=== PATIENT | female | born 1970 | race Caucasian/White ===

== ENCOUNTER 2018-09-09 15:51 | Inpatient (IN) ==
[2018-09-09] MEDS ORDERED: ZOFRAN IV ONE (16:32)
[2018-09-09] MEDS ORDERED: MORPHINE IV ONE ×3 (16:32→20:10)
[2018-09-09 17:11] LABS: URINE SOURCE CLEAN CATCH
[2018-09-09 17:16] LABS: BASO# 0.07 X1000 (0.0-0.2); BASO% 0.7 % (0.0-0.8); EOS# 1.89 X1000 (0.0-0.7); EOS% 19.5 % (0.0-10.0); HEMATOCRIT 39.6 % (37.0-47.0); HEMOGLOBIN 12.5 g/dL (12.0-16.0); IMM GRAN# 0.03 X1000 (0.0-0.04); IMM GRAN% 0.3 % (0.0-0.5); LYMPH# 2.09 X1000 (1.2-3.4); LYMPH% 21.6 % (20.5-51.1); MCH 28.1 PG (27-31); MCHC 31.6 g/dL (33-37); MONO# 0.91 X1000 (0.11-0.59); MONO% 9.4 % (1.7-9.3); MPV 10.2 FL (7.4-10.4); NEUT# 4.69 X1000 (1.4-6.5); NEUT% 48.5 % (42.2-75.2); PLT 294 X1000 (130-400); RBC 4.45 XMIL (4.2-5.4); RDW 14.1 % (11.5-14.5); WBC 9.68 X1000 (4.8-10.8)
[2018-09-09 17:18] LABS: BILIRUBIN URINE NEGATIVE (NEGATIVE); BLOOD URINE SMALL (NEGATIVE); COLOR STRAW; GLUCOSE URINE NEGATIVE (NEGATIVE); KETONE URINE NEGATIVE (NEGATIVE); LEUKOCYTES URINE MODERATE (NEGATIVE); NITRITE URINE NEGATIVE (NEGATIVE); PROTEIN URINE NEGATIVE (NEGATIVE); SP GRAVITY URINE 1.003; TURBIDITY URINE CLEAR (CLEAR); UR EPITHELIAL CELLS <10 /HPF (<10); URINE BACTERIA NEGATIVE /HPF; URINE RBC 20-40 /HPF (<10); URINE WBC <10 /HPF (<10); UROBILINOGEN URINE NORMAL (NORMAL)
[2018-09-09 17:23] LABS: INR 2.47; PROTIME 28.6 Seconds (11.0-16.0)
[2018-09-09 17:24] LABS: PTT 39.6 Seconds (22.3-41.8)
[2018-09-09 17:30] LABS: ALBUMIN 3.7 g/dL (3.5-5.0); CALCIUM 9.2 mg/dL (8.8-10.2); CREATININE 1.3 mg/dL (0.5-0.9); POTASSIUM 4.7 mmol/L (3.5-5.1); TOTAL BILIRUBIN 0.24 mg/dL (0.20-1.00); TOTAL PROTEIN 7.3 g/dL (6.3-8.3)
[2018-09-09] MEDS ORDERED: NS 1,000 ML IV ONE (17:46)
[2018-09-09] MEDS ORDERED: MACROBID PO ONE (18:46)
--- NOTE | 2018-09-09 20:03 | Diag Imaging Result Doc PS360 ---
EXAM: CT ABD/PELVIS W/IV CONT ONLY HISTORY: abdominal pain TECHNIQUE: CT abdomen and pelvis with intravenous contrast COMPARISON: None. FINDINGS: The gallbladder is contracted. There is a 6 mm stone within it. No adjacent inflammation. There is fatty infiltration of the liver and there are multiple scattered hepatic cysts. The largest measures 2.0 cm. Normal spleen, pancreas, and adrenal glands. There are many bilateral renal stones and there is a left ureteral stent. No hydronephrosis. There are small scattered renal cysts. Normal aorta. There are fluid distended loops of bowel in the left abdomen. There is an umbilical hernia with a small bowel loop within it. Along the right side of the loop is dilated, but coming out the left the bowel loop is no longer dilated. There is stool throughout the colon. No inflammation about the cecum. No abscess. Urinary bladder is moderately distended and is normal. Normal uterus. Complex right ovarian cyst measuring just under 4 cm. IMPRESSION: 1.Incarcerated umbilical hernia 2.Cholelithiasis 3.Nephrolithiasis with a left ureteral stent 4.Fatty liver 5.Right ovarian cyst This report was discussed with Dr. Hyde in the emergency room on 09/09/2018 at 8:00 PM and was readback. This exam was performed using automated exposure control, adjustment of mA or kV according to patient size, and/or use of iterative reconstruction technique. Electronically signed by Henry Cohen 09/09/2018 8:01 PM
[2018-09-09] MEDS ORDERED: DILAUDID IV ONE ×2 (20:12→20:58)
--- NOTE | 2018-09-09 22:18 | HISTORY AND PHYSICAL ---
PRIMARY CARE PHYSICIAN: Dr. Denis Handy. CHIEF COMPLAINT: Abdominal pain. HISTORY OF PRESENTING ILLNESS: A 47-year-old female with a history of subarachnoid hemorrhage, seizure disorder and kidney stones who had presented to emergency department 1- day history of having sharp abdominal pain mostly in her umbilical region. She states that she was nauseated. She had presented to the emergency department. She had imaging done which did show incarcerated umbilical hernia. Her case was discussed with general surgery who recommended patient be admitted for further evaluation, management. At the time of my examination patient denied any fever, chills, chest pain, shortness of breath, hemoptysis but complained of abdominal pain. PAST MEDICAL HISTORY: Includes subarachnoid hemorrhage recently, CVA, seizures, kidney stones. PAST SURGICAL HISTORY: Left ureteral stents. ALLERGIES: Demerol and Cipro. CURRENT MEDICATIONS: Include gabapentin 300 mg p.o. t.i.d., Mitchell 10/325 1 p.o. q.i.d., Keppra 500 mg p.o. b.i.d., propranolol 40 mg p.o. b.i.d., warfarin 5 mg 1 p.o. daily. SOCIAL HISTORY: She denies any history of smoking, alcohol or illicit drug use. FAMILY HISTORY: No history of coronary disease. REVIEW OF SYSTEMS: Fourteen point review of systems is as in HPI other systems negative. PHYSICAL EXAMINATION: GENERAL: Cooperative, friendly female. She is resting more comfortably now. VITAL SIGNS: Temperature 98 degrees, pulse 72, respirations 16, blood pressure 124/73. HEENT: Atraumatic, normocephalic. Extraocular movements intact. PERRLA. NECK: No masses. CHEST: Clear to auscultation. CARDIOVASCULAR: Regular rate and rhythm. ABDOMEN: Soft and tenderness noted in umbilical region. : No bladder distention. SKIN: Warm. LABORATORIES AND STUDIES: WBC 9.68, hemoglobin 12.5, hematocrit 39.6, platelets 294,000. Sodium 139, potassium 4.7, chloride 105, CO2 25, BUN is 16, creatinine is 1.3, glucose is 98. UA shows moderate leukocytes and urine bacteria was negative. ASSESSMENT: This is a 47-year-old female with a recent subarachnoid hemorrhage, seizure disorder, kidney stones who had presented to emergency department with 1-day history of having abdominal pain. She was evaluated in the emergency department. She had imaging done which did show incarcerated umbilical hernia. Her case was discussed with general surgery who recommended patient be admitted for further evaluation, management. 1. Incarcerated umbilical hernia, was difficult to reduce. 2. Status post recent subarachnoid hemorrhage. 3. Seizure disorder. 4. History of kidney stone status post lithotripsy and left ureteral stents. PLAN: 1. We will admit patient to surgical floor. 2. Continue with supportive treatment with pain control, antiemetics. 3. General surgery was consulted. 4. Will continue to place patient on seizure precautions. 5. We will restart home medications once cleared by surgery 6. The patient is already on anticoagulation with Coumadin and that will suffice for her DVT prophylaxis for now. 7. We will continue to follow and reassess. Make further recommendation based on patient's clinical course. cc: Eliu Zaidi MD MTDD
--- NOTE | 2018-09-10 00:19 | GENERAL SURGERY CONSULTATION ---
DATE: 09/09/2018 REASON FOR CONSULTATION: Umbilical hernia and small-bowel obstruction. HISTORY OF PRESENT ILLNESS: This is a 47-year-old female who presented to the emergency room today with acute onset of severe periumbilical pain and nausea at around 3:30 this afternoon. She has never had any prior episodes, and she has noted a bulge in her umbilicus today. Her last bowel movement was 2 days ago. She has passed gas since then. Pain is worsened to direct pressure. There have been no relieving factors. PAST MEDICAL HISTORY: Subarachnoid hemorrhage, some type of intracerebral thrombotic event for which she is on Coumadin now, seizures, and kidney stones. PAST SURGICAL HISTORY: Left ureteral stents. ALLERGIES: Demerol and Cipro. HOME MEDICATIONS: Gabapentin, [place], Keppra, propranolol, and warfarin. SOCIAL HISTORY: Negative for tobacco, alcohol, or illicit drug use. FAMILY HISTORY: Reviewed and noncontributory. REVIEW OF SYSTEMS: Ten systems reviewed and negative except as noted above. PHYSICAL EXAMINATION: Vital Signs: Temperature 98 degrees, pulse 73, respirations 14, blood pressure 118/66, O2 saturation 97%. General: Well-developed, well-nourished female in no distress, who looks her stated age. HEENT: Normocephalic, atraumatic. Extraocular muscles intact. Pupils equal, round, reactive to light. Sclerae anicteric. Moist mucous membranes. Hearing grossly normal. No oral lesions. Neck: Supple. No thyromegaly. Cardiovascular: Regular rate and rhythm. Respiratory: Bilaterally equal breath sounds. No work of breathing. Gastrointestinal: Soft, somewhat obese. No organomegaly or mass. No rebound or guarding. She does have a small umbilical hernia. I was able to reduce it with gentle, steady pressure. She was tender in the umbilicus but, again, without rebound or guarding. Extremities: No clubbing, cyanosis, or edema. Skin: Warm and dry. No rash. Musculoskeletal: Moves all extremities equally and well. LABORATORY: CBC reviewed and unremarkable. Complete metabolic profile reviewed and notable for a creatinine of 1.3. Serum lactate 1.1. INR 2.47. Urinalysis positive for leukocytes and blood. IMAGING: Abdominal and pelvis CT scan shows an incarcerated umbilical hernia with dilated proximal bowel and decompressed distal bowel at the umbilicus. There are gallstones, nephrolithiasis with a left ureteral stent, a fatty liver, and a right ovarian cyst. ASSESSMENT AND PLAN: A 47-year-old female with umbilical hernia and small-bowel obstruction. It was incarcerated but now is reducible. She is on Coumadin for some type of cerebral thrombosis. This is in spite of her having a recent subarachnoid hemorrhage. Since this is reducible, my plan is to slowly reverse the Coumadin and plan a semi-elective repair in the near future. Therefore, I am going to hold her Coumadin, and we will monitor her INR over the next couple of days and get her ready for surgery in the near future. cc: Zion Bailey MD
[2018-09-10] MEDS: DILAUDID IV PRN ×5 (02:28→21:30)
[2018-09-10 06:36] LABS: BASO# 0.03 X1000 (0.0-0.2); BASO% 0.4 % (0.0-0.8); EOS# 1.04 X1000 (0.0-0.7); EOS% 15.5 % (0.0-10.0); HEMATOCRIT 38.8 % (37.0-47.0); HEMOGLOBIN 12.2 g/dL (12.0-16.0); IMM GRAN# 0.02 X1000 (0.0-0.04); IMM GRAN% 0.3 % (0.0-0.5); LYMPH# 1.71 X1000 (1.2-3.4); LYMPH% 25.6 % (20.5-51.1); MCH 28.4 PG (27-31); MCHC 31.4 g/dL (33-37); MCV 90.2 FL (81-99); MONO# 0.86 X1000 (0.11-0.59); MONO% 12.9 % (1.7-9.3); NEUT# 3.03 X1000 (1.4-6.5); NEUT% 45.3 % (42.2-75.2); PLT 274 X1000 (130-400); RDW 14.3 % (11.5-14.5); WBC 6.69 X1000 (4.8-10.8)
[2018-09-10 06:47] LABS: INR 2.51; PROTIME 28.9 Seconds (11.0-16.0)
[2018-09-10 06:56] LABS: CALCIUM 8.6 mg/dL (8.8-10.2); CREATININE 1.1 mg/dL (0.5-0.9); POTASSIUM 4.4 mmol/L (3.5-5.1)
[2018-09-10] MEDS ORDERED: KEPPRA PO SCH (09:00)
[2018-09-10] MEDS ORDERED: NEURONTIN PO SCH (09:00)
[2018-09-10] MEDS ORDERED: INDERAL PO SCH (09:00)
[2018-09-10] MEDS ORDERED: VITAMIN K SUBQ ONE (11:17)
--- NOTE | 2018-09-10 11:24 | PROGRESS NOTE ---
DATE: 09/10/2018 SUBJECTIVE: This morning Ms. Farnsworth refers to be feeling a whole lot better. Still has some abdominal discomfort. Has already been evaluated by Dr. Bailey earlier yesterday. OBJECTIVE: Vital signs: Blood pressure is 116/53, pulse is 81, respiration is 16, and temperature is 97.7 degrees. General: Ms. Farnsworth is a 47-year-old female. She is in bed. She is not in any cardiopulmonary distress. HEENT: Mucosa is pink and moist. Anicteric. Acyanotic. Neck: Supple. Chest: Good air entry bilaterally. No crepitations. No rhonchi. Cardiovascular: Regular rate and rhythm. No murmurs, no rubs, no gallops. GI: Abdomen is soft, distended, minimally tender in the supraumbilical area. I was not able to palpate any defect, but she did refer a lot of pain. Bowel sounds were present. No hepatosplenomegaly. Extremities: No pedal edema. Distal pulses present. APPEALS MANAGER: Patient is awake, alert, oriented. There is no focal neurological deficit. LABORATORY DATA: CBC is completely normal. Chemistry shows creatinine is 1.1, which is coming down. CURRENT MEDICATIONS: Have all been reviewed. X-RAY DATA: A CT scan of the abdomen and pelvis did show incarcerated umbilical hernia. There is also cholelithiasis, fatty liver disease. ASSESSMENT: 1. Abdominal pain secondary to incarcerated umbilical hernia. The patient has been evaluated by Surgery. There is a plan for hernia repair some time Wednesday. 2. Cholelithiasis, currently asymptomatic. 3. History of nephrolithiasis with left ureteral stent. 4. Mild intravascular depletion. We will continue patient with intravenous fluids. Creatinine is down to 1.1. 5. History of cerebral venous thrombosis. The patient is on Coumadin. INR is currently 2.51, which is therapeutic. However, we want it to be below 1.5 before surgery is done. 6. History of supraventricular tachycardia. Patient is on chronic propranolol. PLAN: So, today we are going to keep the patient n.p.o., convert her antiseizure medications to IV, and also metoprolol IV instead of the p.o. propranolol. We will start her on a D 5 with half- normal saline and potassium for baseline hydration. Control the pain and await further recommendations from Surgery. cc: Marcus Zuñiga MD
[2018-09-10] MEDS: KEPPRA 500 MG in NS 100 ML IV SCH (11:42)
[2018-09-10] MEDS: D5 1/2 NS + KCL 20 MEQ 1,000 ML IV SCH (11:42)
[2018-09-10] MEDS: ZOFRAN IV PRN ×3 (11:54→21:34)
--- NOTE | 2018-09-10 13:37 | GENERAL SURGERY PROGRESS NOTE ---
DATE: 09/10/2018 SUBJECTIVE: The patient continues to have some abdominal pain around the umbilicus. It is helped with her Dilaudid. It is worsened with direct pressure or straining and movement. No nausea or vomiting. She did pass a little gas today. OBJECTIVE: She is afebrile. Vital signs are stable.General: She is awake and alert and oriented x4. No acute distress. Cardiovascular: Regular rate and rhythm. Respiratory: Bilateral breath sounds. No work of breathing. Gastrointestinal: Soft, nondistended. She is tender around the umbilicus. She does continue to have a reducible small umbilical hernia. LABORATORY: CBC and basic metabolic profile reviewed and unremarkable. INR 2.5. ASSESSMENT AND PLAN: A 47-year-old female with recent incarcerated, now reducible umbilical hernia and associated partial small-bowel obstruction. She seems to be improved, but is at risk for re-incarceration. I am tentatively planning umbilical hernia repair on Wednesday. We need to reverse her INR. I want to review her records from [facility] to decide appropriate anticoagulation in this setting. cc: Zion Bailey MD
[2018-09-10] MEDS ORDERED: NORCO-7.5 PO PRN (18:19)
[2018-09-10] MEDS: LOPRESSOR IV SCH ×2 (18:20→22:30)
[2018-09-11] MEDS: KEPPRA 500 MG in NS 100 ML IV SCH ×3 (00:15→22:28)
[2018-09-11] MEDS: ZOFRAN IV PRN ×4 (03:15→18:16)
[2018-09-11] MEDS: D5 1/2 NS + KCL 20 MEQ 1,000 ML IV SCH ×2 (05:51→12:43)
[2018-09-11 06:34] LABS: BASO# 0.02 X1000 (0.0-0.2); BASO% 0.4 % (0.0-0.8); EOS# 0.56 X1000 (0.0-0.7); EOS% 10.5 % (0.0-10.0); HEMATOCRIT 39.7 % (37.0-47.0); HEMOGLOBIN 12.6 g/dL (12.0-16.0); LYMPH# 1.46 X1000 (1.2-3.4); LYMPH% 27.3 % (20.5-51.1); MCH 28.5 PG (27-31); MCHC 31.7 g/dL (33-37); MCV 89.8 FL (81-99); MONO# 0.58 X1000 (0.11-0.59); MONO% 10.9 % (1.7-9.3); NEUT# 2.72 X1000 (1.4-6.5); NEUT% 50.9 % (42.2-75.2); PLT 273 X1000 (130-400); RBC 4.42 XMIL (4.2-5.4); RDW 14.1 % (11.5-14.5); WBC 5.34 X1000 (4.8-10.8)
[2018-09-11 06:39] LABS: INR 2.07; PROTIME 24.9 Seconds (11.0-16.0)
[2018-09-11] MEDS: DILAUDID IV PRN ×4 (06:48→18:57)
[2018-09-11 07:00] LABS: ALBUMIN 3.6 g/dL (3.5-5.0); CALCIUM 8.9 mg/dL (8.8-10.2); CREATININE 1.1 mg/dL (0.5-0.9); POTASSIUM 4.1 mmol/L (3.5-5.1); TOTAL BILIRUBIN 0.45 mg/dL (0.20-1.00); TOTAL PROTEIN 7.1 g/dL (6.3-8.3)
[2018-09-11] MEDS ORDERED: KEFZOL 1 GM/D5W 1 GM/50 ML IVPB IV ONE (07:40)
--- NOTE | 2018-09-11 10:24 | PROGRESS NOTE ---
DATE: 08/12/2018 SUBJECTIVE: This morning Ms. Farnsworth refers to be fairly okay. Complains of some nauseation every now and then even before her next dose of Zofran. OBJECTIVE: Vital signs: Blood pressure is 148/69, pulse is 80, respiration 16, temperature 97.9 degrees. General: Ms. Farnsworth is a 47-year-old female. She is in bed, no distress. HEENT: Mucosa is pink and moist. Anicteric. Acyanotic. Neck: Supple. Chest: Good air entry bilateral. There was no crepitations, no rhonchi. Cardiovascular: Regular rate and rhythm. No murmurs, no rubs, no gallops. GI: Abdomen is soft. There is just some mild tenderness around the periumbilical area. Bowel sounds are present. There is no hepatosplenomegaly. Extremities: No pedal edema. Distal pulses present. HIDE PASTER: Patient is awake, alert, and oriented. There is no focal neurological deficit. LABORATORY DATA: WBC is 5.34, hemoglobin is 12.6, platelet count of 233,000. Chemistry is also reviewed which is completely normal. Creatinine is 1.1 which is the same as yesterday. INR this morning is 2.07. The patient has been evaluated today by surgery. ASSESSMENT: 1. Periumbilical abdominal pain secondary to incarcerated umbilical hernia. The patient has been evaluated by surgery. There is a plan for hernia repair tomorrow. 2. Cholelithiasis without acute cholecystitis. 3. History of nephrolithiasis with left ureteral stent placement. 4. Mild intra volume depletion improved. 5. History of cerebral venous thrombosis as a result of control pills. The patient is on Coumadin. INR this morning is 2.07. She got a dose of vitamin K yesterday but because surgery is for tomorrow I agree that she gets FFP to reverse this before surgery. Target INR should be below 1.4 -1.5. 6. History of supra ventricular tachycardia. Heart rate is controlled. Currently on IV metoprolol. 7. Hx Cerebral bleed on seizure precautions. Patient is on levetiracetam and this has been also converted to IV. PLAN: So in general Ms. Ms Farnsworth is clinically stable. She is pending a paraumbilical hernia repair tomorrow. Ms Farnsworth was on Coumadin because of cerebral venous thrombosis that she developed about 2 months ago from chronic oral combined contraceptive pills. Her INR has been pretty much therapeutic for the past 2 months. She is obviously going for a moderate to high bleeding procedure, especially if this is not laparoscopically done. She was given an FFP to try and reverse the INR. She is getting FFP today, Our targeted INR should be about 1.4. We will continue to follow up with further recommendations from surgery. cc: Marcus Zuñiga MD MTDD
[2018-09-11] MEDS: LOVENOX SUBQ SCH ×2 (12:42→22:28)
[2018-09-11] MEDS: LOPRESSOR IV SCH ×2 (12:43→22:27)
[2018-09-11] MEDS ORDERED: NS 500 ML ONE (13:27)
--- NOTE | 2018-09-11 13:56 | GENERAL SURGERY PROGRESS NOTE ---
DATE: 09/11/2018 SUBJECTIVE: The patient complains of some nausea but no vomiting. She has been able to get down a small amount of liquids. She has passed a little gas. She has abdominal pain but it is fairly well controlled now. No increasing abdominal distention. OBJECTIVE: She is afebrile. Vital signs are stable. General: She is awake, alert, oriented x4. No acute distress. GI soft nondistended mildly tender around the umbilicus. Her umbilical hernia is still reducible, but continues to bulge out most of the time. LABORATORY: CBC and complete metabolic profile reviewed and unremarkable. INR 2.0. ASSESSMENT AND PLAN: A 47-year-old female with incarcerated umbilical hernia on admission, now it is reducible. She had a small bowel obstruction on admission. This appears to be resolving. She had recent subarachnoid hemorrhage and cerebral venous sinus thrombosis treated at [place] 6 weeks ago. I am planning open umbilical hernia repair tomorrow. For anticoagulation we are going to reverse her INR with fresh frozen plasma today. I will put her on Lovenox for prophylaxis and protection for her cerebral venous thrombosis. I went over the risks and benefits of surgery including bleeding, wound infection, recurrent hernia, injury to the bowel, and other imponderables. She understands and agrees to proceed. cc: Zion Bailey MD
[2018-09-12] MEDS: DILAUDID IV PRN ×3 (00:04→21:28)
[2018-09-12] MEDS: ZOFRAN IV PRN ×3 (00:04→21:28)
[2018-09-12] MEDS: KEPPRA 500 MG in NS 100 ML IV SCH ×4 (02:59→23:20)
[2018-09-12] MEDS: D5 1/2 NS + KCL 20 MEQ 1,000 ML IV SCH ×2 (03:54→18:54)
[2018-09-12 07:22] LABS: INR 1.29; PROTIME 17.1 Seconds (11.0-16.0)
[2018-09-12] MEDS ORDERED: KEFZOL 1 GM/D5W 1 GM/50 ML IVPB IV ONE (08:00)
--- NOTE | 2018-09-12 11:02 | PROGRESS NOTE ---
DATE: 09/12/2018 SUBJECTIVE: This morning, Ms. Farnsworth refers to be feeling okay. Denies any new complaints. She is awaiting for an umbilical surgery repair today. OBJECTIVE: Vital signs: Blood pressure is 119/57, pulse is 82, respiration is 16, temperature 98.3 degrees. On general exam, Ms. Farnsworth is a 47-year-old female. She is in bed. She is not in any cardiopulmonary distress. Mucosa is pink and moist. Anicteric. Acyanotic. Neck is supple. Respiratory System: There is good air entry bilaterally. No crepitations. No rhonchi. No accessory muscle use. Cardiovascular System: Regular rate and rhythm. There are no murmurs, no rubs, no gallops. Gastrointestinal: Abdomen is soft, minimally tender around the periumbilical area. Bowel sounds are present. There is no hepatosplenomegaly. The hernia is easily reducible. Central Nervous System: Patient is awake, alert, oriented. There is no focal neurological deficit. LABORATORY DATA: INR is down to 1.29. MEDICATION: The patient's current medications have all been reviewed. No changes. ASSESSMENT: 1. Abdominal pain secondary to incarcerated umbilical hernia. Patient is pending hernia surgery today. 2. Cholelithiasis without cholecystitis. Noted. 3. History of nephrolithiasis status post left ureteral stent placement. The patient follows up with a urologist in [place]. 4. Clinical volume depletion on presentation, resolved. 5. History of cerebral venous thrombosis as a result of control pills. The patient was on Coumadin anticoagulation. 6. History of supraventricular tachycardia. The patient was on oral propranolol. This has been switched to IV metoprolol or until after surgery. 7. History of intraparenchymal bleed. On seizure precautions. 8. Perioperative anticoagulation management. Ms Farnsworth has a history of cerebral venous thrombosis as a result of control pills, and this was also associated with a subarachnoid hemorrhage. This was about 6 weeks ago, she was attended to at [facility], and discharged on some Coumadin. She seems to be completely asymptomatic. She is doing well. Her presenting INR was 2.47. She was given FFP and vitamin K to reverse in an attempt to get a better INR for surgery this morning. Her INR is 1.29, and she is going to go for an umbilical hernia repair. After surgery, once hemostasis is well achieved, then anticoagulation will be resumed, which is usually 24 hours after surgery. We will wait for Surgery, further recommendation as to when they will feel comfortable for anticoagulation to be resumed. We will recommend a 5-day course of Lovenox to bridge with Coumadin to have a therapeutic level. This can be done at home. DISPOSITION: Disposition is going to depend on the course after the surgery and when the Surgery team will be comfortable for her to be discharged. cc: Marcus Zuñiga MD MTDD
[2018-09-12] MEDS: LOPRESSOR IV SCH ×2 (11:37→23:18)
[2018-09-12] MEDS ORDERED: FENTANYL ONE ×2 (15:53→16:39)
[2018-09-12] MEDS ORDERED: DIPRIVAN 1% ONE (15:53)
[2018-09-12] MEDS ORDERED: VERSED ONE (16:23)
[2018-09-12] MEDS ORDERED: MARCAINE 0.25% PF/EPI 1:200,000 ONE (16:40)
[2018-09-12] MEDS ORDERED: QUELICIN (DOSE) ONE (16:58)
[2018-09-12] MEDS ORDERED: ZOFRAN ONE (16:58)
[2018-09-12] MEDS ORDERED: DECADRON ONE (16:58)
[2018-09-12] MEDS ORDERED: STERILE WATER INJ. ONE (16:58)
[2018-09-12] MEDS ORDERED: NORCURON ONE (16:58)
[2018-09-12] MEDS ORDERED: XYLOCAINE-MPF 2% ONE (16:58)
[2018-09-12] MEDS ORDERED: PHENERGAN ONE (17:20)
[2018-09-12] MEDS: DILAUDID ONE ×4 (17:28→17:44)
--- NOTE | 2018-09-12 18:05 | OPERATIVE NOTE ---
PROCEDURE DATE: PREOPERATIVE DIAGNOSIS: Umbilical hernia. POSTOPERATIVE DIAGNOSIS: Umbilical hernia. PROCEDURE: Open umbilical hernia repair. SURGEON: Zion Bailey MD. ANESTHESIA: General. ESTIMATED BLOOD LOSS: 5 mL. COMPLICATIONS: None apparent. SPECIMENS: Hernia sac. FINDINGS: A small 1 cm reducible umbilical hernia. TECHNIQUE: The patient was brought to the operating room and placed supine on the table. General anesthesia was induced. She was prepped and draped in usual sterile fashion. 0.25% Marcaine with epinephrine was used to anesthetize our incision. A curvilinear supraumbilical incision was made with a knife down through the dermis sharply. Hemostat was then used to dissect around the umbilical stalk and the umbilical skin was from the underlying stalk with a knife and cautery. I then excised the hernia sac at its root at the fascia with cautery and there was no evidence of any herniating bowel. I then closed the fascia with 2 [id number] 0 Tycron sutures. I then tacked the dermis of the umbilical skin down to the fascia with 3-0 Polysorb to create an inward umbilicus, and then I closed the dermis with interrupted subcutaneous 3-0 Polysorb and closed the skin with a running 4-0 subcuticular Monocryl and Steri-Strips. There were no apparent complications. She was awakened in stable condition and transferred to the recovery room. cc: Zion Bailey MD
[2018-09-12] MEDS ORDERED: NORCO-10 PO ONE (18:44)
[2018-09-12] MEDS ORDERED: PHENERGAN PO PRN (18:44)
[2018-09-12] MEDS ORDERED: ANTIVERT PO PRN (18:44)
[2018-09-12] MEDS ORDERED: COUMADIN PO SCH (21:00)
[2018-09-12] MEDS: LOVENOX SUBQ SCH (21:27)
[2018-09-12] MEDS: PERIDEX MT SCH (21:29)
[2018-09-13 06:43] LABS: BASO# 0.01 X1000 (0.0-0.2); BASO% 0.2 % (0.0-0.8); EOS# 0.01 X1000 (0.0-0.7); EOS% 0.2 % (0.0-10.0); HEMATOCRIT 39.5 % (37.0-47.0); HEMOGLOBIN 12.4 g/dL (12.0-16.0); LYMPH# 0.96 X1000 (1.2-3.4); LYMPH% 17.2 % (20.5-51.1); MCH 28.1 PG (27-31); MCHC 31.4 g/dL (33-37); MCV 89.6 FL (81-99); MONO# 0.58 X1000 (0.11-0.59); MONO% 10.4 % (1.7-9.3); MPV 10.2 FL (7.4-10.4); NEUT# 4.02 X1000 (1.4-6.5); PLT 271 X1000 (130-400); RBC 4.41 XMIL (4.2-5.4); RDW 13.8 % (11.5-14.5); WBC 5.58 X1000 (4.8-10.8)
[2018-09-13 06:55] LABS: INR 1.06; PROTIME 14.7 Seconds (11.0-16.0)
[2018-09-13] MEDS: DILAUDID IV PRN ×3 (06:57→15:33)
[2018-09-13] MEDS: ZOFRAN IV PRN ×2 (06:57→11:26)
[2018-09-13 07:08] LABS: CALCIUM 9.2 mg/dL (8.8-10.2); CREATININE 1.1 mg/dL (0.5-0.9); POTASSIUM 4.1 mmol/L (3.5-5.1)
--- NOTE | 2018-09-13 07:40 | PROGRESS NOTE ---
DATE: 09/13/2018 SUBJECTIVE: Patient was admitted on 09/09/2018. She is followed by Dr. Denis Handy. A 47-year-old with history of subarachnoid hemorrhage, seizure disorder, and kidney stones, who presented to the emergency department with a 1-day history of having sharp abdominal pain mostly in the umbilical region. States she was nauseated, and presented to the emergency department. Imaging done showed an incarcerated umbilical hernia. The patient was admitted for further evaluation. She has also had a history of left ureteral stents in the past. Admitted to the hospital. General Surgery consultation with Dr. Bailey. She had an umbilical hernia and small bowel obstruction. It was incarcerated, but apparently it was reducible. She is on Coumadin. She had a history of cerebral thrombosis. She is on that in spite of history of subarachnoid hemorrhage. We held her Coumadin. Surgery was done on 09/12, and did an open umbilical hernia repair. The patient's abdominal pain is improved, and I think they were talking about possibly going home today. OBJECTIVE: She remains afebrile, temperature 97.5 degrees, pulse 59, respirations 20, blood pressure 116/68. Pupils are equal and round. Lungs are clear in all lung weaver. Cardiovascular exam with regular rhythm and rate without murmur or S3. Abdomen is soft. Skin is warm and dry. Urine output was 2700 mL. ASSESSMENT AND PLAN: 1. Abdominal pain secondary to incarcerated umbilical hernia. The patient had hernia repair. 2. Cholelithiasis without cholecystitis. 3. History of nephrolithiasis, status post left ureteral stent placement. Follow up with Urology at [place]. 4. Clinical volume depletion on presentation which has resolved. 5. History of cerebral venous thrombosis as a result of control pills. Patient was on Coumadin anticoagulation. 6. History of supraventricular tachycardia. She was put on propranolol and then switched to IV metoprolol until after surgery. 7. Intraparenchymal bleed on seizure precautions. 8. Perioperative anticoagulative management. She has a history of cerebral venous thrombosis as a result of control pills. It is also associated with a subarachnoid hemorrhage, or has a history of subarachnoid hemorrhage. This was about 6 weeks ago in [place]. She was discharged on Coumadin. She seems to be completely asymptomatic and doing well. INR is 2.4. She is given fresh frozen plasma and vitamin K to reverse for surgery. She has received the umbilical hernia repair. The plan is to continue anticoagulation so recommend a 5 day course of Lovenox to bridge the Coumadin to get to therapeutic level. Seems to be doing better. cc: Santosh Valencia MD
[2018-09-13 07:45] VITALS: BP 117/61
[2018-09-13] MEDS: LOVENOX SUBQ SCH (08:26)
[2018-09-13] MEDS: PERIDEX MT SCH (08:26)
[2018-09-13] MEDS: D5 1/2 NS + KCL 20 MEQ 1,000 ML IV SCH (08:57)
[2018-09-13] MEDS: KEPPRA 500 MG in NS 100 ML IV SCH (11:26)
--- NOTE | 2018-09-13 11:40 | GENERAL SURGERY PROGRESS NOTE ---
DATE: 09/13/2018 SUBJECTIVE: The patient is doing okay. She has some abdominal pain and soreness but is able to get up and go to the bathroom on her own. She is tolerating a liquid diet without nausea or vomiting. OBJECTIVE: Vital signs: She is afebrile. Vital signs are stable. General: She is awake, alert, oriented x4. No acute distress. GI: Soft, appropriately tender, nondistended. Incisional dressing is clean and dry. LABORATORY: Her CBC and metabolic profile were reviewed and unremarkable. ASSESSMENT AND PLAN: A 47-year-old female status post umbilical hernia repair. She will be discharged home today. She will advance her diet as tolerated. We are going to give her Lovenox bridge while she starts taking her Coumadin again. She will follow up in the [facility] on Wednesday. cc: Zion Bailey MD
[2018-09-18] MEDS ORDERED: COUMADIN PO SCH (21:00)
== END 2018-09-13 16:40 | disposition home or self-care (01) | DRG 354 ==
LOC: ED 15:51 → SUATTDRO 15:52 → 4N 09-10 00:30 → SUATTDRO 09-10 00:30
PROVIDERS: ATTEND Emergency Medicine
CPT/HCPCS: 36430; 74177; 80048; 80053; 81001; 81025; 83605; 83690; 85025; 85610; 85730; 86038; 86039; 86850; 86900; 86901; 87088; 88302; 93005; 96361; 96374; 96375; 96376; 99285; A9270; J0330; J0690; J1100; J1170; J1650; J1953; J2250; J2270; J2405; J2550; J3010; J3430; J3480; J7030; J7040; P9017; Q9967; S0020